=== PATIENT | female | born 1990 | race Caucasian/White ===

== ENCOUNTER 2017-01-03 18:26 | Emergency (ER) | payer BC ==
[~2017-01-03] VITALS: Ht 170.2 cm; Wt 99.8 kg
[~2017-01-03 18:26] MED LIST: CYCL10TA2 PO; NAPR250T2 PO; TOPI100C PO; TOPI50CA PO
[2017-01-03 20:00] VITALS: BP 166/101
[2017-01-03] MEDS ORDERED: NAPR500T3 PO (20:25)
--- NOTE | 2017-01-03 20:25 | PHYS DOC ---
Past Medical History Past Medical History: Hypothyroid, Other Additional Past Medical Histor: PCOS Past Surgical History: No Surgical History Alcohol Use: None Drug Use: None Adult General Chief Complaint Chief Complaint: CHEST WALL PAIN HPI HPI 26-year-old female presents with a one-week history of sharp left-sided chest pain. She states pain is much worse when she exhales. She denies any cough or congestion. She denies any shortness of breath or dyspnea on exertion. She's not had any fever chills sweats. She denies hemoptysis. She denies trauma to the area. [] Review of Systems Review of Systems Constitutional: Denies fever or chills [] Eyes: Denies change in visual acuity, redness, or eye pain [] HENT: Denies nasal congestion or sore throat [] Respiratory: Denies cough or shortness of breath [] Cardiovascular: No additional information not addressed in HPI [] GI: Denies abdominal pain, nausea, vomiting, bloody stools or diarrhea [] : Denies dysuria or hematuria [] Musculoskeletal: Denies back pain or joint pain [] Integument: Denies rash or skin lesions [] Neurologic: Denies headache, focal weakness or sensory changes [] Endocrine: Denies polyuria or polydipsia [] Allergies Allergies Allergies Coded Allergies Type Severity Reaction Last Updated Verified carbamazepine Allergy Intermediate 07/11/14 No levetiracetam Allergy Intermediate 07/11/14 No phenytoin Allergy Intermediate 07/11/14 No Physical Exam Physical Exam Constitutional: Well developed, well nourished, no acute distress, non-toxic appearance. [] HENT: Normocephalic, atraumatic, bilateral external ears normal, oropharynx moist, no oral exudates, nose normal. [] Eyes: PERRLA, EOMI, conjunctiva normal, no discharge. [] Neck: Normal range of motion, no tenderness, supple, no stridor. [] Cardiovascular:Heart rate regular rhythm, no murmur [] Lungs & Thorax: Bilateral breath sounds clear to auscultation [] Abdomen: Bowel sounds normal, soft, no tenderness, no masses, no pulsatile masses. [] Skin: Warm, dry, no erythema, no rash. [] Back: No tenderness, no CVA tenderness. [] Extremities: No tenderness, no cyanosis, no clubbing, ROM intact, no edema. [] Neurologic: Alert and oriented X 3, normal motor function, normal sensory function, no focal deficits noted. [] Psychologic: Anxious [] Current Patient Data Vital Signs Vital Signs Date Time Temp Pulse Resp B/P Pulse Ox O2 Delivery O2 Flow Rate FiO2 01/03/17 18:53 97.8 98 14 158/101 97 Room Air 97.8 Lab Values Laboratory Tests Test 01/03/17 17:57 01/03/17 18:47 POC Urine HCG, Qualitative Hcg negative (Negative) D-Dimer (Marcia) 0.27ug/mlFEU (0.00-0.50) EKG EKG [EKG: Normal sinus rhythm rate of [address]-T changes] Radiology/Procedures Radiology/Procedures [] Impressions: Chest x-ray: No acute cardiopulmonary disease. Course & Med Decision Making Course & Med Decision Making Pertinent Labs and Imaging studies reviewed. (See chart for details) [ED course: Evaluation reveals a healthy 26-year-old female in no significant distress. EKG and chest x-ray were unremarkable her d-dimer was negative thus ruling out concern for a pulmonary embolus. I've encouraged patient to take anti -inflammatories such as ibuprofen at home for discomfort. Table for discharge home] Dragon Disclaimer Dragon Disclaimer This electronic medical record was generated, in whole or in part, using a voice recognition dictation system. Departure Departure Impression: Primary Impression: Pleurisy Disposition: 01 HOME, SELF-CARE Condition: IMPROVED Referrals: [facility] (PCP) Patient Instructions: Pleurisy Additional Instructions: Thank you for allowing us to participate in your care today. Followup with your primary care physician in 3 days if your symptoms do not improve. Return to the emergency department you have any new or concerning findings. This should be evaluated by the primary care physician and any necessary consulting services for continued management within a few days after discharge. Return to emergency room if you have any new or concerning symptoms including but not limited to fever, chills, nausea, vomiting, intractable pain, any new rashes, chest pain, shortness of air, uncontrolled bleeding, difficulty breathing, and/or vision loss. You may have been prescribed medication that can change in your level of thinking and ability to operate machinery. These medications include hydrocodone and Ativan. Also, Benadryl has been known to do this as well. Be sure to check with your pharmacist and ask if the medications you've prescribed can affect your level of consciousness. I recommend not operating heavy machinery or driving while on medication such as these. Scripts Naproxen 500 Mg Tablet1 Tab PO BID PRN PAIN #30 TAB Ref 1 Prov:JENARO WATERMAN DO 01/03/17 JENARO WATERMAN DO Jan 03, 2017 20:25
--- NOTE | 2017-01-04 06:56 | EKG ---
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
--- NOTE | 2017-01-04 08:40 | RAD ---
Exam: AP portable chest. History: Mid chest pain for 3 days radiating to the left breast. Comparison: None. Findings: The heart and mediastinal structures are within normal limits for size. Lungs are without infiltrate. No pneumothorax or pleural effusion is appreciated. Impression: 1. No acute cardiopulmonary process.
== END 2017-01-03 20:35 | disposition home or self-care (01) ==
LOC: ER 18:26
DX: R09.1 Pleurisy (principal); E03.9 Hypothyroidism, unspecified; E28.2 Polycystic ovarian syndrome; Z88.8 Allergy status to other drugs, medicaments and biological substances
CPT/HCPCS: 36415; 71010; 81025; 85379; 93005; 99285-25

== ENCOUNTER → 2022-02-25 | Outpatient (CLI) | payer BC ==
[~2022-02-25] MED LIST changes: +CYCL10TA19 PO; -CYCL10TA2 PO; +NAPR-514 PO; +NAPR-699 PO; -NAPR250T2 PO; -TOPI100C PO; +TOPI100C6 PO; -TOPI50CA PO; +TOPI50CA6 PO
--- NOTE | 2022-02-25 16:23 | RAD ---
PROCEDURE: MG DIGITAL BILAT DIAGNOSTIC MAMMO WITH KENIA, US BREAST RT HISTORY: The patient is 31 years old and is seen for Reason: Lump rt breast / Spl. Instructions: / H istory: . COMPARISON: None TECHNIQUE: CC and MLO views of both breasts were obtained. Images were processed by the [employer] computer-aided detection system. Targeted right breast ultrasound DENSITY: There are scattered fibroglandular densities. FINDINGS: Left mammogram: No suspicious microcalcification, mass or architectural distortion. Right mammogram: No developing mass, suspicious calcifications or architectural distortion. Right ultrasound: Small hypoechoic lesion within the right breast 1:00 position 5 cm from the nipple measures 0.3 x 0.2 cm correspond with patient's palpable concern, may represent complicated cyst. Add itional hypoechoic lesion within the right breast 9:00 position 7 cm from the nipple measures 1.0 x 0 .3 x 0.4 cm corresponding with patient's palpable concern, may represent fibroadenoma. IMPRESSION: 1. Small hypoechoic lesions within the right breast, may represent fibroadenoma and complicated cyst . Recommend 6 month follow-up ultrasound. BI-RADS category 3 Probably benign Our clinic nurse has been instructed to assist with communicating findings and recommendations to the patient's referring physician and in scheduling follow-up. Patient entered into a reminder system for annual screening mammogram. Electronically signed by: Kyrie Vera DO (02/25/2022 4:21 PM) [id number]
== END ==
LOC: US 14:50
PROVIDERS: ATTEND Nurse Practitioner Family
DX: N64.89 Other specified disorders of breast (principal)
CPT/HCPCS: 76641; 77066; G0279; 77062